=== PATIENT | female | born 1970 | race Two or more races ===

== ENCOUNTER 2020-03-27 14:14 | Emergency (ER) | payer OTHER, SELFPAY ==
[2020-03-27 14:15] VITALS: BP 128/73; PULSE 80; RESP 16; TEMP 36.8; O2SAT 98; BMI 33.6
--- NOTE | 2020-03-27 14:33 | CT_ITS ---
PROCEDURE: CT ABDOMEN PELVIS W CON CLINICAL INDICATION: abd pain Left-sided abdominal pain COMPARISON: CT ABDPELWO CT abdomen pelvis wo con from 02/27/2018 TECHNIQUE: IV Contrast: 75ML OPTIRAY 350 Oral Contrast None Axial images obtained with sagittal and coronal reformats. All CT scans at the facility use one or more dose reduction, viz: automated exposure control, ma/kV adjustment per patient size (including targeted exams where dose is matched to indication, i.e. head), or iterative reconstruction technique. FINDINGS: LOWER THORAX: No acute finding ABDOMEN & PELVIS: The liver, spleen, adrenal glands, pancreas, and kidneys have an unremarkable appearance. Gallbladder is present with no calcified stones apparent. No intestinal obstruction or free air. No evidence of appendicitis. The uterus is bulky with bilateral tubal ligation clips present. No focal inflammatory change apparent. No acute bony findings. IMPRESSION: As above, no acute finding. Dictated by: Darrell Nichole MD 03/28/2020 06:42 Darrell Nichole MD in [place] 03/28/2020 06:42
[2020-03-27 14:42] LABS: Microscopic, Urine URINE MICROSCOPIC (MICROSCOPIC)
[2020-03-27 14:43] LABS: Appearance,Urine CLEAR (Clear); Bilirubin,Urine Negative (Negative); Blood, Urine 2+ (Negative); Color,Urine YELLOW (Yellow); Glucose,Urine (UA) Negative (Negative); Ketones,Urine Negative (Negative); Leukocyte Esterase,Urine Negative (Negative); Nitrate,Urine Negative (Negative); PH,Urine 6.5 (5.0-8.5); Protein,Urine Negative (Negative); Urobilinogen,Urine 0.2 EU/dl (0.2)
[2020-03-27 14:48] LABS: Bacteria,Urine Trace /lpf; WBC,Urine Occasional #/hpf (0-3)
[2020-03-27 14:55] LABS: Chloride 104 mmol/L (98-107); Potassium 3.8 mmoL/L (3.5-5.1); Sodium 141 mmol/L (136-145)
[2020-03-27 14:57] LABS: Basophils % 0.4 % (0.1-2.0); Eosinophils # 0.4 K/mm3 (0.0-0.4); Eosinophils % 3.7 % (0.1-12.0); Hematocrit 34.8 % (37.0-47.0); Hemoglobin 11.3 g/dL (12.2-16.2); Lymphocytes # 3.3 K/mm3 (0.7-4.5); Lymphocytes % 34.6 % (10-50); Mean Corpuscular HGB Conc 32.4 g/dL (31.8-35.4); Mean Corpuscular Hemoglobin 26.1 pg (27.0-31.2); Mean Corpuscular Volume 80.8 fl (81-99); Mean Platelet Volume 7.5 fl (7.4-10.4); Monocytes # 0.4 K/mm3 (0.1-1.0); Monocytes % 4.2 % (1.7-9.3); Neutrophils # 5.4 K/mm3 (1.8-7.8); Neutrophils % 57.2 % (37.0-80.0); Platelet Count 351 K/mm3 (142-424); Red Blood Count 4.31 M/mm3 (4.20-5.40); White Blood Count 9.5 K/mm3 (4.8-10.8)
[2020-03-27 14:58] LABS: Alanine Aminotransferase 49 U/L (12-78); Albumin Level 4.3 g/dl (3.5-5.0); Albumin/Globulin Ratio 1.2 (1.1-1.8); Alkaline Phosphatase 77 U/L (38-126); Anion Gap 12.8 mEq/L (5-15); Aspartate Amino Transferase 73 U/L (14-36); Bilirubin,Total 0.3 mg/dl (0.2-1.3); Blood Urea Nitrogen 8 mg/dl (7-17); Calcium 9.4 mg/dl (8.4-10.2); Carbon Dioxide 28 mmol/L (22.0-30.0); Creatinine Clearance Estimated 183 mL/min (50-200); Estimated Glomerular Filt Rate 131 ml/min (>60); GFR (African American) 158 ML/MIN (>60); Globulin 3.6 g/dL (1.3-3.2); Glucose 121 mg/dl (74-100); Total Protein,Serum 7.9 g/dl (6.3-8.2)
--- NOTE | 2020-03-27 15:00 | HMH.EDGENADL ---
ED Disposition Clinical Impression: Left upper quadrant abdominal pain Disposition: Home, Self-Care Condition on Discharge: Good Instructions: DI for Abdominal Pain-Adult Additional Instructions: Protonix as prescribed. You are being provided with a list of physicians available for follow-up of your condition. Please call a physician on this list to arrange a follow-up appointment as soon as possible. Additional instructions for ABDOMINAL PAIN: See your physician as soon as possible for further evaluation. Return immediately if worsening abdominal pain, vomiting, shortness of breath, fever, vomiting of blood or abdominal distention. Prescriptions: Pantoprazole Sodium [Protonix 40mg tablet] 40 mg PO DAILY #21 tab Transmission Status: Received by [facility] #[id number] Referrals: PCP,No [Primary Care Provider] - - Critical Care Critical Care Time: No Attestation: On 03/27/20, the high probability of a clinically significant, sudden or life threatening deterioration of the following system(s) required my full and direct attention, intervention and personal management. The time I documented below is in addition to time spent performing reported procedures but includes the following listed in this critical care notation. Medical Decision Making - Medical Records Medical records reviewed: Yes: I reviewed the patient's medical records. - Rebmerto Inquiry Pt receiving controlled substance: No Vital Signs: 03/27/20 14:15 03/27/20 16:18 Temperature 98.2 F 98 F Temperature Source Oral Oral Pulse Rate 78 Pulse Rate [Left Radial] 80 Respiratory Rate 16 16 Blood Pressure 135/78 Blood Pressure [Right Arm] 128/73 Blood Pressure Mean [Right Arm] 91 Blood Pressure Position Sitting Blood Pressure Position [Right Arm] Sitting 02 Sat by Pulse Oximetry 98 Oxygen Delivery Method Room Air Room Air - Lab Data Lab results reviewed: Yes: I reviewed the patient's lab results. Lab Results 03/27/20 14:20: Urine Color Yellow, Urine Appearance Clear, Urine pH 6.5, Ur Specific [place] 1.010, Urine Protein Negative, Urine Glucose (UA) Negative, Urine Ketones Negative, Urine Blood 2+, Urine Nitrate Negative, Urine Bilirubin Negative, Urine Urobilinogen 0.2, Ur Leukocyte Esterase Negative, Urine RBC 3-5, Urine WBC Occasional, Ur Squamous Epith Cells 5-10, Urine Bacteria Trace 03/27/20 14:20: Urine HCG, Qual Negative 03/27/20 14:40: WBC 9.5, RBC 4.31, Hgb 11.3 L, Hct 34.8 L, MCV 80.8 L, MCH 26.1 L, MCHC 32.4, RDW 16.0, Plt Count 351, MPV 7.5, Neut % (Auto) 57.2, Lymph % (Auto) 34.6, [place] % (Auto) 4.2, Eos % (Auto) 3.7, Baso % (Auto) 0.4, Neut # (Auto) 5.4, Lymph # (Auto) 3.3, [place] # (Auto) 0.4, Eos # (Auto) 0.4, Baso # (Auto) 0.0 03/27/20 14:40: Sodium 141, Potassium 3.8, Chloride 104, Carbon Dioxide 28, Anion Gap 12.8, BUN 8, Creatinine 0.50 L, Estimated Creat Clear 183, Estimated GFR 131, Est GFR ( Amer) 158, Glucose 121 H, Calcium 9.4, Total Bilirubin 0.3, AST 73 H, ALT 49, Alkaline Phosphatase 77, Total Protein 7.9, Albumin 4.3, Globulin 3.6 H, Albumin/Globulin Ratio 1.2 03/27/20 14:40: Amylase 58, Lipase 122 Result diagrams: 03/27/20 14:40 03/27/20 14:40 Orders (Tests/Meds): ED MEDICATIONS Discontinued Medications Generic Name Dose Route Start Last Admin Trade Name Freq PRN Reason Stop Dose Admin Ioversol 75 ml 03/27/20 15:16 03/27/20 15:17 Rad-Optiray 350 100ml Vial IV 03/27/20 15:17 75 ml ONCE ONE Administration Protocol Sodium Chloride 10 ml 03/27/20 15:16 03/27/20 15:17 Rad-Saline Flush 10ml Syringe IV 03/27/20 15:17 10 ml ONCE ONE Administration ORDERS Category Date Time Status CT abdomen pelvis w con Stat Cat Scan 03/27/20 14:33 Taken - CT Data CT Scan: Abdomen, Pelvis Time Received: 15:52 ([facility] fax) Findings Narrative: No acute process General Adult HPI - General Chief complaint: Abdominal Pain Stated complaint: left side p
[2020-03-27 15:16] LABS: Amylase 58 U/L (30-110); Lipase 122 U/L (23-300)
[2020-03-27 16:04] LABS: Urine Pregnancy, HCG Qual. Negative (Negative)
[2020-03-27 16:18] VITALS: BP 135/78; PULSE 78; RESP 16; TEMP 36.6; O2SAT 98
== END 2020-03-27 16:19 | disposition home or self-care (01) ==
PROVIDERS: Emergency Provider Emergency Medicine
DX: R10.12 Left upper quadrant pain (principal)
CPT/HCPCS: 74177; 80053; 81001; 81025; 82150; 83690; 85025; 99283; Q9967

== ENCOUNTER 2020-08-29 07:09 | Emergency (ER) | payer OTHER, SELFPAY ==
[2020-08-29 07:10] VITALS: BP 158/77; PULSE 72; RESP 18; TEMP 36.8; O2SAT 97; BMI 37.0
--- NOTE | 2020-08-29 07:24 | HMH.EDGENADL ---
ED Disposition Clinical Impression: Pharyngitis Qualifiers: Pharyngitis/tonsillitis etiology: unspecified etiology Qualified Code(s): J02.9 - Acute pharyngitis, unspecified Disposition: Home, Self-Care Condition on Discharge: Good Instructions: DI for Viral Pharyngitis, DI for Pharyngitis/Tonsillopharyngitis -- Adult Additional Instructions: You have been evaluated for sore throat, diagnosed with pharyngitis. Likely viral. Take Tylenol and ibuprofen for pain. Please follow-up with the primary care doctor 24 to 48 hours for symptom recheck. Return to the emergency department if you have any new or worsening symptoms, difficulty swallowing, difficulty breathing, worsening swelling or pain.. Referrals: PCP,No [Primary Care Provider] - Damon Guzman MD [Staff Physician] - James Montez MD [Staff Physician] - Time of Disposition: 08:03 - Critical Care Critical Care Time: No Attestation: On 08/29/20, the high probability of a clinically significant, sudden or life threatening deterioration of the following system(s) required my full and direct attention, intervention and personal management. The time I documented below is in addition to time spent performing reported procedures but includes the following listed in this critical care notation. Medical Decision Making - Medical Records Medical records reviewed: Yes: I reviewed the patient's medical records. - Remberto Inquiry Pt receiving controlled substance: No Vital Signs: 08/29/20 07:10 Temperature 98.2 F Temperature Source Oral Pulse Rate [Left Radial] 72 Respiratory Rate 18 Blood Pressure [Right Arm] 158/77 H Blood Pressure Mean [Right Arm] 104 Blood Pressure Source [Right Arm] Automatic Cuff Blood Pressure Position [Right Arm] Sitting 02 Sat by Pulse Oximetry 97 Oxygen Delivery Method Room Air - Lab Data Lab Results 08/29/20 07:15: Group A Strep Rapid Negative Orders (Tests/Meds): ED MEDICATIONS Discontinued Medications Generic Name Dose Route Start Last Admin Trade Name Freq PRN Reason Stop Dose Admin Dexamethasone Sodium Phosphate 8 mg 08/29/20 07:55 Dexamethasone 4mg/Ml 5ml Mdv PO 08/29/20 07:56 ONCE ONE ORDERS Category Date Time Status Strep Screen Confirmation Stat Micro 08/29/20 07:15 Received Medical Decision Narrative: In summary this is a 50-year-old female presenting to the emergency department with sore throat. Patient clinically stable on arrival. Vital signs are within normal limits. No difficulty managing secretions. Able to speak in full sentences. Most likely diagnosis is pharyngitis. Concern for strep pharyngitis or viral syndrome. Will obtain rapid strep test. Rapid strep test is negative. Will send for culture. On reassessment patient continues to be well-appearing. She is able to tolerate oral intake. Given 8 mg oral Decadron. Most likely diagnosis is viral pharyngitis. Patient would benefit from close follow-up with a primary care physician. Also will need routine health maintenance. Given referral. Patient comfortable with plan for discharge. Given return precautions. General Adult HPI - General Stated complaint: Sore Throat Time Seen by Provider: 08/29/20 07:24 - History of Present Illness HPI narrative: 50-year-old female presenting to the emergency department with sore throat. Symptoms have been going on for the last week or 2. Described as a pain with swallowing. Pain is described as sharp, on both sides of the back of the throat. Dry mouth. Symptoms are worse at night and improves throughout the day. She feels like she has a lot of phlegm in her throat. No difficulty swallowing or difficulty breathing. No fevers, chills, cough, vomiting. She has not taken any medications for pain. No known sick contacts. She does not have a family doctor. Does not have any medical problems like diabetes. Has never had upper endoscopy. Pain is not described as burning
[2020-08-29 07:40] VITALS: BP 147/89; PULSE 76; RESP 18; O2SAT 98
[2020-08-29 07:58] LABS: Strep Scrn Group A (Rapid) Negative (Negative)
[2020-08-29 08:09] VITALS: BP 133/81; PULSE 70; RESP 17; TEMP 36.8; O2SAT 99
== END 2020-08-29 08:10 | disposition home or self-care (01) ==
PROVIDERS: Emergency Provider Emergency Medicine
DX: J02.9 Acute pharyngitis, unspecified (principal)
CPT/HCPCS: 87430; 99282

== ENCOUNTER 2021-02-09 12:58 | Emergency (ER) | payer OTHER, SELFPAY ==
[2021-02-09 12:59] VITALS: BP 151/80; PULSE 76; RESP 18; TEMP 36.9; O2SAT 97; BMI 34.7
--- NOTE | 2021-02-09 13:04 | HMH.EDDENT ---
ED Disposition Clinical Impression: Pain, dental Disposition: Home, Self-Care Condition on Discharge: Good Instructions: DI for Dental Pain Additional Instructions: Follow-up with dentist next week as planned. Return to the emergency department for any acute new concerns or worsening symptoms. Prescriptions: Penicillin V Potassium 500 mg PO QID 7 Days #28 tab Transmission Status: Pending to [facility] #[id number] - Critical Care Critical Care Time: No (Sent for ibuprofen to 1) Attestation: On , the high probability of a clinically significant, sudden or life threatening deterioration of the following system(s) required my full and direct attention, intervention and personal management. The time I documented below is in addition to time spent performing reported procedures but includes the following listed in this critical care notation. Medical Decision Making - Remberto Inquiry Pt receiving controlled substance: No Medical Decision Narrative: Patient with dental pain and has follow-up for this problem next week with dentistry. Will prescribe penicillin prophylactically and given lidocaine to the pulse. No signs of Andrea's angina or intraoral abscess. Dental HPI - General Stated complaint: mouth pain Time Seen by Provider: 02/09/21 13:04 Mode of Arrival: Ambulatory Source of Information: Patient, Spouse Limitations: No Limitations - History of Present Illness HPI Narrative: This is a 50-year-old female who presents to the emergency department for tooth pain on the right lower jaw for the last 4 days. No fevers, changes in voice. No exacerbating or alleviating factors. Has dentist appointment next week. No intraoral drainage. No trauma. - Related Data Previous Rx's Medication Instructions Recorded Penicillin V Potassium 500 mg PO QID 7 Days #28 tab 02/09/21 Allergies Allergy/AdvReac Type Severity Reaction Status Date / Time No Known Allergies Allergy Verified 09/29/18 15:45 [facility] History - Hepatitis A Screen Attestation statement:: This patient has been screened for Hepatitis A risk factors. I have reviewed the patient's past medical history: Yes (NonContributory) - Social History Smoking Status: Unknown if ever smoked Alcohol Intake: never Occupational Status: other Housing: other Household Members: other ROS Obtained: Yes All systems reviewed & no additional complaints Physical Exam - General General appearance: alert, in no apparent distress - Head Head exam: atraumatic, normocephalic - Eye Eye exam: Present: normal appearance, PERRL, EOMI - ENT ENT exam: Present: normal exam, mucous membranes moist, other (Patient indicates pain around tooth #29/30. There is no intraoral abscess. No elevation of the floor of the mouth. Diffuse cavities.) - Respiratory Respiratory exam: Absent: respiratory distress - Cardiovascular Cardiovascular exam: Present: regular rate, normal rhythm - Neurological Exam Neurological exam: Present: alert, normal gait - Skin Skin exam: Present: warm, dry. Absent: rash
[2021-02-09 13:15] VITALS: BP 147/75; PULSE 76; RESP 16; TEMP 36.9; O2SAT 97
== END 2021-02-09 13:21 | disposition home or self-care (01) ==
LOC: ER 13:23
PROVIDERS: Emergency Provider Emergency Medicine
DX: K08.89 Other specified disorders of teeth and supporting structures (principal)
CPT/HCPCS: 99281

== ENCOUNTER 2021-09-03 07:34 | Emergency (ER) | payer OTHER, SELFPAY ==
[2021-09-03 07:41] VITALS: BP 139/53; PULSE 70; RESP 16; TEMP 36.9; O2SAT 96; BMI 33.1
--- NOTE | 2021-09-03 07:58 | HMH.EDGENADL ---
ED Disposition Clinical Impression: Dental caries Sinusitis Qualifiers: Sinusitis location: unspecified location Chronicity: acute Recurrence: not specified as recurrent Qualified Code(s): J01.90 - Acute sinusitis, unspecified Disposition: Home, Self-Care Condition on Discharge: Good Instructions: DI for Sinusitis, DI for Tooth Decay Additional Instructions: Augmentin (antibiotic) as prescribed. Tylenol #3 and dental balls for tooth pain. Follow-up with ear nose and throat physician, Dr. Thayer, if sore throat does not improve. Additional instructions for DENTAL PROBLEMS: See a dentist as soon as possible for further evaluation. Return immediately if you have an uncontrollable fever greater than 102 degrees, difficulty breathing or shortness of breath, persistent vomiting, or inability to swallow. Additional instructions for CONTROLLED SUBSTANCES: You have been prescribed a medication that is a controlled substance. Controlled substances include pain medications known as opiates and sedative nerve medications known as benzodiazepines. Tramadol, fioricet, and gabapentin are also controlled substances. Some common opiates include: Codeine (such as Tylenol #3) Hydrocodone (Vicodin, Lortab, Lorcet, [place]) Oxycodone (Percocet, Percodan, Oxycodone, Oxy IR) Some common benzodiazepines include: Diazepam (Valium) Lorazepam (Ativan) Alprazolam (Xanax) Clonazepam (Klonopin) Oxazepam (Serax) All of these controlled substances are highly addictive and frequently abused. Misuse can and frequently does lead to addiction as well as overdose and . Medication should be stored in a locked cabinet or other secure storage unit. Do not store the medication in a motor vehicle. Short term supplies, 3 days or less, are prescribed because of the highly addictive nature of the medication. Any of the controlled substance medication NOT taken should be disposed of properly and NOT SAVED. The recommended method of disposing of unused medications is: Place the medicines in a sealable plastic bag. If the medicine is a solid, crush it or add water to dissolve it. Add something undesirable (cat litter, coffee grounds, etc.) Dispose of sealed bag in household trash Do not flush or pour unused medicines down a sink or drain. Controlled substances should not be shared, given away or sold. Because of the addictive nature and frequent abuse, these medications are sometimes stolen. These medications should be kept in a safe place where they cannot be stolen. Do not keep them in your car or purse. Lost or stolen prescriptions for controlled substances WILL NOT BE REFILLED in this emergency department, regardless of whether a police report was filed. Prescriptions: Acetaminophen with Codeine [Tylenol with Codeine #3 tablet] 1 tab PO Q6HP PRN #12 tab PRN Reason: Moderate Pain Transmission Status: Received by [id number] Amoxicillin/Potassium Clav [Amox-Clav 875-125 mg Tablet] 1 tab PO BID #14 tab Transmission Status: Pending to [id number] Referrals: Provider,MD Dwight [Primary Care Provider] - Suraj Thayer MD [Physician] - - Critical Care Critical Care Time: No Attestation: On 09/03/21, the high probability of a clinically significant, sudden or life threatening deterioration of the following system(s) required my full and direct attention, intervention and personal management. The time I documented below is in addition to time spent performing reported procedures but includes the following listed in this critical care notation. Medical Decision Making - Remberto Inquiry Pt receiving controlled substance: Yes Remberto was queried for this patient: Yes Risks and benefits of using a controlled substance: were discussed with pt by me Vital Signs: 09/03/21 07:41 Temperature 98.5 F Temperature Source Oral Pulse Rate [Left Radial] 70 Respiratory Rate 16 Blood Pressure [
[2021-09-03 08:02] LABS: Strep Scrn Group A (Rapid) Negative (Negative)
[2021-09-03 08:43] VITALS: BP 128/60; PULSE 71; RESP 16; TEMP 36.9; O2SAT 98
== END 2021-09-03 08:44 | disposition home or self-care (01) ==
PROVIDERS: Emergency Provider Emergency Medicine
DX: K02.9 Dental caries, unspecified (principal); J01.90 Acute sinusitis, unspecified; J02.9 Acute pharyngitis, unspecified; Z79.899 Other long term (current) drug therapy
CPT/HCPCS: 87430; 99283

== ENCOUNTER → 2022-06-21 12:43 | Outpatient (CLI) | payer OTHER, SELFPAY ==
--- NOTE | 2022-06-21 | CA_ITS ---
APPROVED REPORT EXAM: Comprehensive 2D, Doppler, and color-flow Echocardiogram Beef Pusher: Sugar Coy CRT Ht: 5 ft 5 in Wt: 180lbs BSA: 1.89 BP: 139/53 mmHg Rhythm: 53 Indications: Abnormal ECG 2D Dimensions LVOT 1.94 cm (M/F) 1.5-2.5 LA Volume 32.10 mL LA Volume Index 16.268244 mL/m2 (M/F) 16-34 M-Mode Dimensions RVDd 2.13 cm (0.9-2.6) LA Diam 4.15 cm (1.9-4.0) LVDd 4.95 cm (3.5-5.7) Ao Diam 2.55 cm (2.0-3.7) LVDs 3.35 cm (3.5-5.7) IVSd 1.14 cm (0.6-1.1) PWd 0.80 cm (0.6-1.1) EF (Teich) 60.30% FS 32.30% EDV (Teich) 115.50 mL ESV (Teich) 45.80 mL LV Diastology E Decel Time 167.00 (160-240 msec) E/A Ratio 0.98 MED E' 7.10 (< 7 cm/sec) E'/MED E' Ratio 10.94 (>14) LAT E' 10.70 (<10 cm/sec) E/LAT E' Ratio 7.26 (>14) Mitral Valve MV E Max Thomas. 78.00 (40-130 cm/s) MV A Velocity 79.00 (40-130 cm/s) E/A Ratio 0.98 MV Decel. Time 167.00 (160-240 ms) MV PHT 49.00 ms Left Ventricle Left atrium appears to be parameters normal size, left ventricle normal size, estimated ejection fraction 55% with no regional wall motion abnormality, diastolic parameters are inconclusive. Right Ventricle Right atrium and right ventricle are normal size and contractility. Aortic Valve Aortic valve is grossly normal, there is no aortic stenosis or aortic insufficiency. Mitral Valve Mitral valve grossly normal, there is trace mitral regurgitation. Tricuspid Valve Tricuspid grossly normal, there is trace tricuspid regurgitation, tricuspid regurgitation jet velocity is inadequate for calculation of the right ventricular systolic pressure. Pulmonic Valve Pulmonic valve is poorly visualized. Great Vessels Aortic root is normal size. Inferior vena cava is poorly visualized. Pericardium No significant pericardial effusion noted. Conclusion 1. Normal left ventricular size, estimated ejection fraction 55% with no regional wall motion abnormality, diastolic parameters are inconclusive. 2. Trace mitral and tricuspid regurgitation. 3. No significant pericardial effusion. 4. Inferior vena cava is poorly visualized. Electronically signed by : Marcel Jimenez MD 06/22/2022 19:08:11
== END ==
PROVIDERS: Visit Provider Nurse Practitioner Family
DX: R94.31 Abnormal electrocardiogram [ECG] [EKG] (principal)
CPT/HCPCS: 93306

== ENCOUNTER → 2022-07-13 14:41 | Outpatient (CLI) | payer OTHER, SELFPAY ==
--- NOTE | 2022-07-13 14:47 | MM_ITS ---
PROCEDURE INFORMATION: Exam: MG Bilateral Diagnostic Breast Tomosynthesis Exam date and time: 07/13/2022 2:44 PM Age: 52 years old Clinical indication: Concern for left breast lump for 4 days. No family history of breast cancer. TECHNIQUE: Imaging protocol: Bilateral Diagnostic tomosynthesis and 2D mammography including computer-aided detection (CAD) when performed. Unilateral or bilateral exam. COMPARISON: 1. MG DMSB DIG MAMM-SCREEN ANUEL 11/29/2014 5:21 PM 2. MG DMSB DIG MAMM-SCREEN ANUEL 11/03/2013 9:42 AM 3. MG DMSB DIGITAL MAMM-SCREEN BILATERAL 10/23/2012 8:25 AM 4. MG DMSB DIGITAL MAMM-SCREEN BILATERAL 08/08/2011 3:35 PM FINDINGS: MAMMOGRAPHY: Breast composition: The breasts are heterogeneously dense, which may obscure small masses. Mass: Possible 0.3 cm mass in the right upper inner quadrant posterior 3rd 8-9 cm from the nipple. Architectural distortion: None. Calcifications: No suspicious calcifications. Asymmetric density: Possible 0.8 cm patchy focal asymmetry with interspersed fat in the left upper outer quadrant posterior 3rd, 10-11 cm from the nipple - partly included in the 3D spot compression and which becomes less prominent in the 2D spot compression. Skin thickening: None. Axillary adenopathy: None. IMPRESSION: Patient will be recalled for bilateral sonography in the right upper inner quadrant for possible mass and in the left upper outer quadrant at the area of palpable concern. Further evaluation of a palpable abnormality should be based on clinical grounds regardless of radiographic findings or lack thereof. ASSESSMENT: BI-RADS Category 0: Incomplete- Need Additional Imaging Evaluation and/or Prior Mammograms for Comparison
== END ==
PROVIDERS: PCP Nurse Practitioner Family; Visit Provider Nurse Practitioner Family
DX: N63.20 Unspecified lump in the left breast, unspecified quadrant (principal)
CPT/HCPCS: 77062; 77066; G0279

== ENCOUNTER → 2022-07-20 10:57 | Outpatient (CLI) | payer OTHER, SELFPAY ==
--- NOTE | 2022-07-20 11:10 | US_ITS ---
PROCEDURE INFORMATION: Exam: US Left Breast, Complete Exam date and time: 07/20/2022 11:18 AM Age: 52 years old Clinical indication: Patient recalled for further evaluation of a right breast mass and further evaluation of a palpable abnormality on the left TECHNIQUE: Imaging protocol: Complete ultrasound of all four quadrants of the Left breast and the retroareolar regions, including ultrasound of the axilla when performed. COMPARISON: MG MM DIG MAMM BI DX W/CAD 07/13/2022 2:44 PM FINDINGS: Breast: Sonographic images of both breasts including the retroareolar regions, all 4 quadrants and the axilla do not demonstrate any solid masses. Minimal subcentimeter cystic change is present bilaterally including a 0.5 cm cyst in the right 2 o'clock axis 5 cm from the nipple most closely corresponding to the mass on mammography. In the area of palpable concern in the left 2 o'clock axis 10 cm from the nipple is an ovoid hypoechoic mass likely reflecting underlying benign cystic change measuring 1.2 x 0.9 x 0.4 cm in dimension. No architectural distortion or acoustical shadowing. No skin thickening or axillary adenopathy. IMPRESSION: 1. Palpable abnormality in the posterior left upper outer quadrant corresponds sonographically to probably benign cystic change. A six-month follow-up diagnostic left mammogram and targeted left breast ultrasound are recommended to ensure stability over time.Further evaluation of a palpable abnormality should be based on clinical grounds regardless of radiographic findings or lack thereof. 2. Mass on screening mammography corresponds to underlying cystic change sonographically. There is no mammographic evidence of malignancy.Annual bilateral mammographic screening is recommended unless otherwise clinically indicated. ASSESSMENT: BI-RADS Category 3: Probably benign
== END ==
PROVIDERS: PCP Nurse Practitioner Family; Visit Provider Nurse Practitioner Family
DX: R92.8 Other abnormal and inconclusive findings on diagnostic imaging of breast (principal)
CPT/HCPCS: 76641

== ENCOUNTER 2022-08-08 07:56 | Emergency (ER) | payer OTHER, SELFPAY ==
[2022-08-08 07:56] VITALS: BP 145/90; PULSE 64; RESP 16; TEMP 37; O2SAT 97; BMI 31.2
--- NOTE | 2022-08-08 08:09 | HMH.EDGENADL ---
Discharge Plan Disposition Patient Disposition: Home, Self-Care Condition: Good Prescriptions Prescriptions: New triamcinolone acetonide 0.1 % cream 1 applic topical DAILY 14 Days Qty: 80 0RF hydroxyzine pamoate [Vistaril] 25 mg capsule 25 mg PO TID PRN (Reason: Itching) 5 Days Qty: 15 0RF No Action valsartan 80 mg tablet 80 mg PO BID Label Comments: TAKE 1 TABLET BY MOUTH TWICE DAILY rosuvastatin 20 mg tablet 20 mg PO DAILY Label Comments: TAKE 1 TABLET BY MOUTH ONCE DAILY cholecalciferol (vitamin D3) [Vitamin D3] 50 mcg (2,000 unit) capsule 50 mcg PO DAILY Label Comments: TAKE 1 CAPSULE BY MOUTH ONCE DAILY Referrals Follow up/Referrals: Mony Flores APRN [Primary Care Provider] - See instructions Activity Restrictions/Add. Instructions Additional Instructions/Restrictions: Follow-up with your primary care physician within the next few days. Return to the emergency department within the next 8 hours should she have worsening pain itching or any other concerns. If rash persist beyond steroid cream, consider follow-up with a wood scrap handler Instructions Patient Instructions: DI for Skin Abscess Discharge ED Provider: Avery Sepulveda General Adult HPI General Chief complaint: Skin/Abscess/Foreign Body Stated complaint: Rash on back itching Time Seen by Provider: 08/08/22 08:00 Mode of Arrival: Ambulatory Source of Information: Patient and Spouse Limitations: Language Barrier Description of Symptoms (Recalled from ER Triage Doc. by RN): pt comes in with dry patch of skin located in middle of back. ongoing for 1 month. pt states no pain associated, only itching. History of Present Illness HPI narrative: 52-year-old female presents with itching to her mid back for the last month. She says the lesion occurred and has progressively getting worse. It is a few inches in size. She has never had this before. No fever no chills. No abdominal pain chest pain. No vomiting or diarrhea. No redness or swelling to the site. They have tried to put garlic on it but this did not improve it. Location: mouth (1) Radiation: back Severity: moderate Related Data Home Medications Medication Instructions Recorded Confirmed cholecalciferol (vitamin D3) 50 50 mcg PO DAILY Supplement 08/08/22 08/08/22 mcg (2,000 unit) capsule (Vitamin D3) rosuvastatin 20 mg tablet 20 mg PO DAILY High cholesterol 08/08/22 08/08/22 valsartan 80 mg tablet 80 mg PO BID . 08/08/22 08/08/22 Previous Rx's Medication Instructions Recorded hydroxyzine pamoate 25 mg capsule 25 mg PO TID PRN Itching 5 days 08/08/22 (Vistaril) #15 caps triamcinolone acetonide 0.1 % 1 applic topical DAILY apply to 08/08/22 topical cream affected area until resolved 14 days #80 grams Allergies Allergy/AdvReac Type Severity Reaction Status Date / Time No Known Allergies Allergy Verified 08/08/22 08:07 [facility] Disclaimer: The information contained in this section may have been updated after the patient was seen, as this information can be updated by other users. Social History Smoking Status: Never smoker alcohol intake: never current occupational status: other Travel in the last 8 weeks: None household members: other housing: other ROS Obtained: Yes All systems reviewed & no additional complaints except as documented Physical Exam General General appearance: alert and in no apparent distress Eye Eye exam: Present PERRL and EOMI ENT ENT exam: Present normal exam and normal oropharynx Neck Neck exam: Present normal inspection Chest Chest inspection: Present symmetric chest wall rise Respiratory Respiratory exam: Present normal lung sounds bilaterally; Absent respiratory distress Cardiovascular Cardiovascular exam: Present regular rate and normal rhythm Abdominal Exam Abdominal exam: Present soft; Absent distention, tendern
[2022-08-08 08:24] VITALS: BP 145/90; PULSE 59; RESP 18; TEMP 37
== END 2022-08-08 08:27 | disposition home or self-care (01) ==
PROVIDERS: Emergency Provider Emergency Medicine; PCP Nurse Practitioner Family
DX: R21 Rash and other nonspecific skin eruption (principal)
CPT/HCPCS: 99283; 99284

== ENCOUNTER → 2022-10-09 12:51 | Outpatient (CLI) | payer OTHER, SELFPAY ==
--- NOTE | 2022-10-09 12:58 | US_ITS ---
PROCEDURE INFORMATION: Exam: US Right Breast, Complete Exam date and time: 10/09/2022 2:12 PM Age: 52 years old Clinical indication: 1 day history of right nipple discharge. TECHNIQUE: Imaging protocol: Complete ultrasound of all four quadrants of the right breast and the retroareolar regions, including ultrasound of the axilla when performed. COMPARISON: US BREAST RT COMPLETE 07/20/2022 11:43 AM FINDINGS: Breast: Hypoechoic suspected benign complicated cysts are present as follows: 0.4 x 0.4 x 0.2 cm right 2 o'clock, previously 0.3 x 0.3 x 0.3 cm 0.3 x 0.1 by 0.3 cm right 3 o'clock, previously 0.4 x 0.2 x 0.3 cm 0.4 x 0.2 x 0.4 cm right 10 o'clock, previously 0.4 x 0.2 by 0.8 In the retroareolar right breast, deep within the tissue, there is a horizontally oriented circumscribed hypoechoic mass measuring 0.9 x 1.2 x 0.4 cm. This is nonspecific and could reflect fibroadenoma or a the possible fat nodule. No suspicious solid or cystic mass is present. No architectural distortion or shadowing is present. No axillary adenopathy is present. IMPRESSION: Diagnostic mammogram with retroareolar spot compression views will be required to complete this examination based on clinical presentation. There is a 1.2 cm nonspecific mass in the retroareolar right breast with sonographic features suggesting benign fibroadenoma or possible fat lobule. Short-term surveillance is recommended with targeted ultrasound in 6 months unless findings from mammogram suggest a different course of action Additionally, if the patient were to be experiencing clear or bloody nipple discharge especially if from a single duct then suspicion should be heightened for intraductal pathology including carcinoma ASSESSMENT: BI-RADS 0, incomplete, needs additional imaging evaluation
== END ==
PROVIDERS: PCP Nurse Practitioner Family; Visit Provider Nurse Practitioner Family
DX: N63.14 Unspecified lump in the right breast, lower inner quadrant (principal); N64.52 Nipple discharge
CPT/HCPCS: 76641

== ENCOUNTER → 2022-10-29 14:32 | Outpatient (CLI) | payer OTHER, SELFPAY ==
--- NOTE | 2022-10-29 14:36 | MM_ITS ---
PROCEDURE INFORMATION: Exam: MG Right Diagnostic Breast Tomosynthesis Exam date and time: 10/29/2022 2:31 PM Age: 52 years old Clinical indication: Patient recalled on the basis of a screening mammogram for further evaluation; Right breast; nipple discharge TECHNIQUE: Imaging protocol: Right Diagnostic tomosynthesis and 2D mammography including computer-aided detection (CAD) when performed. Unilateral or bilateral exam. COMPARISON: 1. MG MM DIG MAMM BI DX W/CAD 07/13/2022 2:44 PM 2. MG DMSB DIG MAMM-SCREEN ANUEL 11/29/2014 5:21 PM FINDINGS: MAMMOGRAPHY: Digital diagnostic spot compression views of the right retroareolar region do not demonstrate any suspicious findings. IMPRESSION: No focal findings in the right retroareolar region. If spontaneous clear and/or hemorrhagic nipple discharge is present, further evaluation with MRI may prove useful. ASSESSMENT: BI-RADS Category 1: Negative
== END ==
PROVIDERS: PCP Nurse Practitioner Family; Visit Provider Nurse Practitioner Family
DX: N64.52 Nipple discharge (principal); N63.14 Unspecified lump in the right breast, lower inner quadrant
CPT/HCPCS: 77061; 77065; G0279

== ENCOUNTER → 2022-12-31 13:47 | Outpatient (CLI) | payer SELFPAY | PROVIDERS: PCP Nurse Practitioner Family; Visit Provider Nurse Practitioner Family | DX: N63.20 Unspecified lump in the left breast, unspecified quadrant (principal) ==